=== PATIENT | female | born 1950 | race Caucasian/White ===

== ENCOUNTER 2018-03-21 12:26 | Outpatient (CLI) | payer MEDICARE, OTHER | END 2018-03-21 12:27 | disposition home or self-care (01) | LOC: BICMAMMO 12:26 | PROVIDERS: ATTEND Family Medicine | DX: Z12.31 Encounter for screening mammogram for malignant neoplasm of breast (principal); R92.1 Mammographic calcification found on diagnostic imaging of breast | CPT/HCPCS: 77063; 77067 ==

== ENCOUNTER 2019-03-22 07:59 | Outpatient (CLI) | payer MEDICARE, OTHER ==
--- NOTE | 2019-03-22 09:25 | MMO ---
Bilateral MAMMO Bilat Screen [facility]. CLINICAL HISTORY: Patient is 68 years old and is seen for screening. The patient has no family history of breast cancer. The patient has no personal history of cancer. VIEWS: The views performed were: bilateral craniocaudal with tomosynthesis and bilateral mediolateral oblique with tomosynthesis. FILMS COMPARED: The present examination has been compared to prior imaging studies performed at [facility] on 08/28/2014, 10/08/2015, 12/10/2016 and 03/21/2018. This study has been interpreted with the assistance of computer-aided detection. MAMMOGRAM FINDINGS: There are scattered fibroglandular densities. There are stable benign appearing calcifications seen in both breasts. There are no suspicious masses, suspicious calcifications, or new areas of architectural distortion. IMPRESSION: THERE IS NO MAMMOGRAPHIC EVIDENCE OF MALIGNANCY. A ROUTINE FOLLOW-UP MAMMOGRAM IN 1 YEAR IS RECOMMENDED. THE RESULTS OF THIS EXAM WERE SENT TO THE PATIENT. ACR BI-RADS Category 2 - Benign finding MAMMOGRAPHY NOTE: 1. A negative mammogram report should not delay a biopsy if a dominant of clinically suspicious mass is present. 2. Approximately 10% to 15% of breast cancers are not detected by mammography. 3. Adenosis and dense breasts may obscure an underlying neoplasm. Reported by: ALEX MENDES MD Electonically Signed: [id number]
== END 2019-03-22 08:00 | disposition home or self-care (01) ==
LOC: BICMAMMO 07:59
PROVIDERS: ATTEND Family Medicine
DX: Z12.31 Encounter for screening mammogram for malignant neoplasm of breast (principal)
CPT/HCPCS: 77063; 77067

== ENCOUNTER 2019-05-24 07:42 | Outpatient (CLI) | payer MEDICARE, OTHER ==
--- NOTE | 2019-05-24 08:44 | CT ---
ABDOMEN CT WITH AND WITHOUT CONTRAST PELVIC CT WITH AND WITHOUT CONTRAST: HISTORY: Follow-up left adrenal lesion. COMPARISON: 12/02/2017. FINDINGS: Abdomen CT: Chronic changes in the lingula. Heart: Normal size. No pericardial effusion. No coronary artery calcification. Aorta: No aneurysm, dissection or periaortic fat stranding. There is atherosclerosis with mild to mod erate narrowing of the infrarenal abdominal aorta. Gallbladder: Surgically absent. Portal vein: Patent. Liver: Diffuse hypoattenuation compatible with hepatic steatosis. Spleen: Unremarkable. Pancreas: Unremarkable. Right adrenal gland: Unremarkable. Left adrenal gland: Redemonstration of a 1.9 x 1.7 cm hypodense nodule involving the lateral limb, wi th attenuation coefficient of 38 Hounsfield units on the noncontrast exam. Attenuation coefficient on the arterial phase postcontrast images is 66 Hounsfield units. Attenuation coefficient on the cruz yed images is 75 Hounsfield units. There is spiculated and serpiginous enhancement on the immediate and delayed post contrast images. Symmetric enhancement of the kidneys. Bilateral extrarenal pelvises. No abnormal enhancing masses. No evidence of obstructive uropathy. Contrast opacifies the intrarenal collecting systems without filling defect. Mesentery: No mass, lymphadenopathy, free air or free fluid. Alimentary canal: Limited evaluation by the absence of oral contrast. No evidence of small bowel obst ruction. Fecalization of the distal ileum likely due to incompetent ileocecal valve. Scattered fecal material in a nondistended, nondilated colon. Diverticulosis, without evidence of diverticuliti s. Normal caliber air-filled appendix. CT PELVIS: Surgically absent uterus. No pelvic mass, nephropathy, free air or free fluid. Unremarkable urinary b ladder. OSSEOUS STRUCTURES: Metallic shrapnel projects over the right aspect of the iliac wing and sacrum. No lytic or blastic le sions. Presacral fat is preserved. Visualized thoracic and lumbar vertebral body heights are maintained. IMPRESSION: 1. Redemonstration of a left adrenal nodule, slightly increased in size. Absolute washout is 32.1% an d relative washout is 13.6%. Based on the absolute washout and relative washout, lesion is indeterminate. Based on the enhancement pattern, imaging features favor a pheochromocytoma. Correlati on with laboratory values is recommended 2. Additional findings as detailed above. CODE T Transcribed Date/Time: 05/24/2019 9:05 AM
[2019-05-24] MEDS ORDERED: Iopamidol-370 76% 500 ML 1 ML ONE (15:15)
== END 2019-05-24 07:43 | disposition home or self-care (01) ==
LOC: BICCT 07:42
PROVIDERS: ATTEND Clinical Nurse Specialist Medical-Surgical
DX: E27.8 Other specified disorders of adrenal gland (principal); K57.90 Diverticulosis of intestine, part unspecified, without perforation or abscess without bleeding; I70.0 Atherosclerosis of aorta; Z90.49 Acquired absence of other specified parts of digestive tract
CPT/HCPCS: 74178; 82565; Q9967

== ENCOUNTER 2019-07-17 14:06 | Outpatient (CLI) | payer MEDICARE, OTHER ==
--- NOTE | 2019-07-17 14:39 | BD ---
DEXA bone density examination HISTORY: 68-year-old postmenopausal female for screening COMPARISON: None FINDINGS: L1--bone mineral density 0.895 g/sq cm; T score -0.9 L2--bone mineral density 0.84 g/sq cm; T score -1.7 L3--bone mineral density 0.854 g/sq cm; T score -2.1 L4--bone mineral density 0.921 g/sq cm; T score -1.3 Total L1-L4--bone mineral density 0.878 g/sq cm; T score -1.5 Left femoral neck--bone mineral density0.631 g/sq cm; T score -2.0 Total proximal left femur--bone mineral density 0.803 g/sq cm ; T score -1.1 IMPRESSION: 1. Moderate osteopenia left femoral neck indicating 4 fold increased risk for fracture. 2. Mild osteopenia lumbar spine indicating 2 fold increased risk for fracture.
== END 2019-07-17 14:07 | disposition home or self-care (01) ==
LOC: EDBD → BICMAMMO 14:06
PROVIDERS: ATTEND Chiropractor
DX: M81.0 Age-related osteoporosis without current pathological fracture (principal); M79.10 Myalgia, unspecified site; M25.50 Pain in unspecified joint; M85.89 Other specified disorders of bone density and structure, multiple sites
CPT/HCPCS: 77080

== ENCOUNTER 2020-04-03 09:41 | Outpatient (CLI) | payer MEDICARE, OTHER ==
--- NOTE | 2020-04-03 10:46 | MMO ---
Bilateral MAMMO Bilat Screen [facility]. CLINICAL HISTORY: Patient is 69 years old and is seen for screening. The patient has no family history of breast cancer. The patient has no personal history of cancer. VIEWS: The views performed were: bilateral craniocaudal with tomosynthesis and bilateral mediolateral oblique with tomosynthesis. FILMS COMPARED: The present examination has been compared to prior imaging studies performed at [facility] on 10/08/2015, 12/10/2016, 03/21/2018 and 03/22/2019. This study has been interpreted with the assistance of computer-aided detection. MAMMOGRAM FINDINGS: There are scattered fibroglandular densities. There are benign appearing calcifications seen in both breasts. There are no suspicious masses, suspicious calcifications, or new areas of architectural distortion. IMPRESSION: THERE IS NO MAMMOGRAPHIC EVIDENCE OF MALIGNANCY. A ROUTINE FOLLOW-UP MAMMOGRAM IN 1 YEAR IS RECOMMENDED. THE RESULTS OF THIS EXAM WERE SENT TO THE PATIENT. ACR BI-RADS Category 2 - Benign finding MAMMOGRAPHY NOTE: 1. A negative mammogram report should not delay a biopsy if a dominant of clinically suspicious mass is present. 2. Approximately 10% to 15% of breast cancers are not detected by mammography. 3. Adenosis and dense breasts may obscure an underlying neoplasm. Reported by: EPI MARCELO MD Electonically Signed: [id number]
== END 2020-04-03 09:42 | disposition home or self-care (01) ==
LOC: BICMAMMO 09:41
PROVIDERS: ATTEND Clinical Nurse Specialist Medical-Surgical
DX: Z12.31 Encounter for screening mammogram for malignant neoplasm of breast (principal)
CPT/HCPCS: 77063; 77067

== ENCOUNTER 2021-04-21 11:23 | Outpatient (CLI) | payer MEDICARE, OTHER | END 2021-04-21 11:24 | disposition home or self-care (01) | LOC: BICMAMMO 11:23 | PROVIDERS: ATTEND Clinical Nurse Specialist Medical-Surgical | DX: Z12.31 Encounter for screening mammogram for malignant neoplasm of breast (principal) | CPT/HCPCS: 77063; 77067 ==

== ENCOUNTER 2021-08-06 19:30 | Outpatient (CLI) | payer MEDICARE, OTHER | END 2021-08-06 19:31 | disposition home or self-care (01) | LOC: SLEEPLAB 19:30 | PROVIDERS: ATTEND Registered Nurse Community Health | DX: G47.33 Obstructive sleep apnea (adult) (pediatric) (principal); R06.89 Other abnormalities of breathing; I49.9 Cardiac arrhythmia, unspecified; R06.83 Snoring; F41.9 Anxiety disorder, unspecified; I11.0 Hypertensive heart disease with heart failure; I50.9 Heart failure, unspecified; G47.00 Insomnia, unspecified; G47.10 Hypersomnia, unspecified; G47.52 REM sleep behavior disorder | CPT/HCPCS: 95810 ==

== ENCOUNTER 2021-09-08 19:00 | Outpatient (CLI) | payer MEDICARE, OTHER | END 2021-09-08 19:01 | disposition home or self-care (01) | LOC: SLEEPLAB 19:00 | PROVIDERS: ATTEND Registered Nurse Community Health | DX: G47.33 Obstructive sleep apnea (adult) (pediatric) (principal); R06.83 Snoring; F41.9 Anxiety disorder, unspecified; I11.0 Hypertensive heart disease with heart failure; I50.9 Heart failure, unspecified; G47.10 Hypersomnia, unspecified; I49.9 Cardiac arrhythmia, unspecified; E66.9 Obesity, unspecified; J98.9 Respiratory disorder, unspecified; Z68.27 Body mass index [BMI] 27.0-27.9, adult | CPT/HCPCS: 95811 ==

== ENCOUNTER 2022-01-14 13:35 | Outpatient (CLI) | payer MEDICARE, OTHER | END 2022-01-14 13:36 | disposition home or self-care (01) | LOC: BICRAD 13:35 | PROVIDERS: ATTEND Physician Assistant Medical | DX: K62.89 Other specified diseases of anus and rectum (principal) | CPT/HCPCS: 72220 ==

== ENCOUNTER 2023-04-29 08:34 | Outpatient (CLI) | payer MEDICARE, OTHER | END 2023-04-29 08:35 | disposition home or self-care (01) | LOC: CT 08:34 | PROVIDERS: ATTEND Internal Medicine Endocrinology, Diabetes & Metabolism | DX: E27.8 Other specified disorders of adrenal gland (principal); K76.0 Fatty (change of) liver, not elsewhere classified; K44.9 Diaphragmatic hernia without obstruction or gangrene; K57.30 Diverticulosis of large intestine without perforation or abscess without bleeding; N28.89 Other specified disorders of kidney and ureter; Z90.49 Acquired absence of other specified parts of digestive tract | CPT/HCPCS: 74170; 82565 ==

== ENCOUNTER 2024-02-03 08:19 | Outpatient (CLI) | payer MEDICARE, OTHER | END 2024-02-03 08:20 | disposition home or self-care (01) | LOC: BICMAMMO 08:19 | PROVIDERS: ATTEND Chiropractor | DX: Z12.31 Encounter for screening mammogram for malignant neoplasm of breast (principal) | CPT/HCPCS: 77063; 77067 ==

== ENCOUNTER 2024-04-12 14:21 | Outpatient (CLI) | payer MEDICARE, OTHER | END 2024-04-12 14:22 | disposition home or self-care (01) | LOC: RAD 14:21 | PROVIDERS: ATTEND Internal Medicine | DX: R05.3 Chronic cough (principal); R06.00 Dyspnea, unspecified | CPT/HCPCS: 71046 ==

== ENCOUNTER 2024-10-11 10:34 | Outpatient (CLI) | payer MEDICARE, OTHER | END 2024-10-11 10:35 | disposition home or self-care (01) | LOC: RAD 10:34 | PROVIDERS: ATTEND Internal Medicine | DX: R06.00 Dyspnea, unspecified (principal) | CPT/HCPCS: 71046 ==